=== PATIENT | female | born 1960 | race Caucasian/White ===

== ENCOUNTER → 2016-09-23 | Outpatient (CLI) | payer OTHER ==
--- NOTE | 2016-10-05 23:49 | ECWPNPC ---
PATIENT NAME: RUDDY HERNANDEZ : 1960 GENDER: FEMALE VISIT DATE: 09/23/2016 DISCHARGE DATE: 09/23/16 1109 VISIT LOCKED DATE TIME: PHYSICIAN: ZEYAD GRAVES RESOURCE: ZEYAD GRAVES REASON FOR APPOINTMENT 1. BACK PAIN HISTORY OF PRESENT ILLNESS HISTORY OF PRESENT ILLNESS: PAIN THE PATIENT DESCRIBES THE PAIN... 54 YEAR OLD FEMALE PATIENT WITH HISTORY OF CHRONIC LOW BACK PAIN. PATIENT DESCRIBES THE PAIN THROBBING WITH A PAIN SCORE OF 0/10. MRS. HERNANDEZ STATES THAT SHE HAS ALWAYS HAD BACK PAIN SINCE SHE WAS DIAGNOSED WITH SCOLIOSIS IN HER EARLY TEENS. CURRENTLY THE PATIENT USES SOMA AND NAPROXEN TO AID IN PAIN RELIEF. MRS. HERNANDEZ STATES SHE DOES NOT USE THE MEDICATION DAILY AND ONLY USES IT WHEN THE PAIN AND SPASMS ARE SEVERE AND IMMOBILIZE HER. PATIENT DENIES UNEXPLAINABLE WEIGHT LOSS, FEVER, CHILLS, NEW CHANGES ON HER URINARY OR BOWEL CONTROL. FALL RISK SCREENING: SCREENING :NO FALLS IN THE PAST YEAR CURRENT MEDICATIONS TAKING VITAMIN D (ERGOCALCIFEROL) 46735 UNIT CAPSULE 1 CAPSULE ORALLY WEEKLY TAKING CALCIUM 500 MG TABLET 1 TABLET WITH MEALS ORALLY TWICE A DAY TAKING SOMA 350 MG TABLET 1 TABLET NEEDED ORALLY Q 6 HRS MDD 3 MEDICATION LIST REVIEWED AND RECONCILED WITH THE PATIENT PAST MEDICAL HISTORY LOW BACK PAIN ANXIETY OSTEOPORSIS SCOLIOSIS ALLERGIES N.K.D.A. REVIEW OF SYSTEMS REVIEWED BY: PROVIDER: ZEYAD GRAVES MD . CONSTITUTIONAL: ANY CHANGE IN YOUR MEDICAL CONDITION? NO . CHILLS NO . FEVER NO . INFECTION: DO YOU HAVE NEW INFECTIONS? NO . DO YOU HAVE HISTORY OF MRSA? NO . MUSCULOSKELETAL: ANY NEW PATTERNS OF PAIN OR NUMBNESS? NO . GASTROENTEROLOGY: ANY NEW CHANGE IN BOWEL CONTROL? NO . GENITOURINARY: ANY NEW CHANGE IN BLADDER CONTROL? NO . IS THERE A CHANCE YOU COULD BE ? NO . HEMATOLOGY/LYMPH: DO YOU TAKE ANY BLOOD THINNERS? (FOR EXAMPLE- COUMADIN, PLAVIX, AGGRENOX, PLATEL, PRADAXA, OR XARELTO) NO . WHEN WAS YOUR LAST DOSE? DATE: TIME: . NEUROLOGY: HAVE YOU FALLEN IN THE PAST 6 MONTHS? NO . ANY NEW EXTREMITY NUMBNESS OR WEAKNESS? NO . CARDIOLOGY: DO YOU HAVE A PACEMAKER OR DEFIBRILLATOR? NO . RESPIRATORY: HAVE YOU BEEN SICK IN THE PAST WEEK? NO . FEVER NO . FLU LIKE SYMPTOMS? NO . COUGH NO . INTEGUMENTARY: DO YOU HAVE ANY RASHES OR OPEN SORES? NO . ALLERGIC/IMMUNO: ARE YOU ALLERGIC TO SHELLFISH OR IV DYE? NO . ANY NEW ALLERGIES? NO . PSYCHIATRIC: DO YOU HAVE THOUGHTS OF HURTING YOURSELF OR SOMEONE ELSE? NO . ARE YOU ABUSED, NEGLECTED, OR IN AN UNSAFE ENVIRONMENT? NO . ENDOCRINOLOGY: ARE YOU DIABETIC? NO . OTHER: DO YOU NEED ANY PRESCRIPTIONS? NO . IF YES, PLEASE LIST: ____ . ANY NEW PROBLEMS WITH YOUR MEDICATIONS? NO . WHEN DID YOU LAST EAT? ____ . WHEN DID YOU LAST DRINK? ____ . WHAT DID YOU LAST DRINK? ____ . NAME OF PERSON DRIVING YOU HOME? ____ . DO YOU HAVE ANY OTHER QUESTIONS OR CONCERNS YES, JUST NEED CARISOPRADOL . VITAL SIGNS WT 142.0 LBS, HT 61 IN, BMI 26.83 INDEX, BP 153/96 MM HG, HR 77 /MIN, RR 16 /MIN, TEMP 97.6 F, OXYGEN SAT % 99%, NA INITIALS TL 1059, REVIEWED BY: CRYSTAL. EXAMINATION : PATIENT IS ALERT O X 3 AND COOPERATIVE. TENDERNESS AND TIGHTNESS IN THE LOWER BACK AND PARASPINAL MUSCLE GROUP. SEVERE SPASTICITY IN THE THORACIC AREA. BANDS OF TISSUE, RESTRICTION OF MOVEMENT, AND PRESENCE OF TRIGGER POINTS IN THE LOWER BACK AREA. ASSESSMENTS MYALGIA - M79.1 (PRIMARY) SPONDYLOSIS WITHOUT MYELOPATHY OR RADICULOPATHY, LUMBAR REGION - M47.816 SPONDYLOSIS WITHOUT MYELOPATHY OR RADICULOPATHY, LUMBOSACRAL REGION - M47.817 TREATMENT MYALGIA NOTES: WE DISCUSSED SEVERAL ISSUES WITH MRS. HERNANDEZ'S PAIN MANAGEMENT CASE. AT THIS TIME THE PATIENT WILL CONTINUE WITH THE SAME MEDICATION REGIME BEFORE. PATIENT WILL USE NAPROXEN FOR INFLAMMATION AND SOMA FOR THE SEVERE MUSCLE SPASMS. PATIENT STATES THAT SHE IS DOING VERY WELL WITH THE MEDICATION AND DOES NOT USE THE MEDICATION DAILY. HOWEVER, WHEN THE PATIENT GETS A MUSCLE SPASM SHE BECOMES IMMOBILE. PATIENT BROUGHT MEDICATIONS TO TODAY'S VISIT IN THEIR ORIGINAL BOTTLES. AT THIS TIME THE PATIENT WOULD NOT LIKE TO MOVE FORWARD WITH ANY INTERVENTIONS. PATIENT WAS ADVISED TO CALL WHEN SHE NEEDS A REFILL OF THE MEDICATION. INSTRUCTIONS WERE GIVEN, QUESTIONS WERE ANSWERED, PATIENT REPORTS UNDERSTANDING AND AGREES WITH THE PLAN. CLEVELAND Bruner, DOCUMENTED THE ABOVE INFORMATION ACTING A SCRIBE FOR DR. GRAVES. I HAVE REVIEWED THE ABOVE DOCUMENT, WRITTEN BY CLEVELAND CASTILLO AND I VERIFY THAT IT IS ACCURATE. OTHERS REFILL SOMA TABLET, 350 MG, 1 TABLET NEEDED FOR SPASMS AND PAIN, ORALLY, Q 6 HRS MDD 3, 30 DAY(S), 30, REFILLS 0 PROCEDURE CODES FA211 ESTABILISHED PATIENT [facility] FACILITY CHARGE [id number] DOC MEDS VERIFIED W/PT OR RE G0643 PAIN ASSESS POS TOOL F/U PLAN DOC DISPOSITION & COMMUNICATION FOLLOW UP 2 MONTHS ELECTRONICALLY SIGNED BY ZEYAD GRAVES MD ON 10/05/2016 AT 08:37 PM EDT DISCLAIMER : THIS IS A VISIT SUMMARY EXTRACTED FROM THE [employer] CHART. IT IS NOT A COPY OF THE [employer] PROGRESS NOTE. MTDD
== END ==
LOC: M PAIN 10:40
PROVIDERS: ATTEND Anesthesiology
DX: G89.29 Other chronic pain (principal); M47.816 Spondylosis without myelopathy or radiculopathy, lumbar region; M47.817 Spondylosis without myelopathy or radiculopathy, lumbosacral region; M79.1 Myalgia; F41.9 Anxiety disorder, unspecified; M85.80 Other specified disorders of bone density and structure, unspecified site; M41.9 Scoliosis, unspecified; Z79.899 Other long term (current) drug therapy

== ENCOUNTER → 2024-12-16 | Outpatient (CLI) | payer MEDICARE, OTHER | LOC: M SOG 07:25 | PROVIDERS: ATTEND Orthopaedic Surgery | DX: M25.572 Pain in left ankle and joints of left foot (principal) ==